=== PATIENT | female | born 1945 | race Caucasian/White ===

== ENCOUNTER 2018-01-15 17:37 | Inpatient (IN) | payer MEDICARE, BC ==
[~2018-01-15] VITALS: Ht 177.8 cm; Wt 80.0 kg
[2018-01-15 18:50] LABS: BASOPHILS % (AUTO) 0.1 % (0-1); EOSINOPHILS # (AUTO) 0.2 X10'3 (0-0.9); EOSINOPHILS % (AUTO) 1.5 % (0-6); HEMOGLOBIN 13.3 g/dl (12.0-16.0); LYMPHOCYTES # (AUTO) 2.4 X10'3 (1.1-4.8); LYMPHOCYTES % (AUTO) 17.9 % (21-51); MEAN CORPUSCULAR HEMOGLOBIN 29.3 PG (27.0-31.0); MEAN CORPUSCULAR HGB CONC 33.2 % (33.0-36.5); MEAN CORPUSCULAR VOLUME 88.4 FL (78-98); MEAN PLATELET VOLUME 8.4 FL (7.4-10.4); MONOCYTES % (AUTO) 7.9 % (2-12); NEUTROPHILS # (AUTO) 9.6 X10'3 (1.8-7.7); NEUTROPHILS % (AUTO) 72.6 % (42-75); PLATELET COUNT 304 X10'3 (140-440); RED BLOOD COUNT 4.52 X10'6 (4.20-5.60); RED CELL DISTRIBUTION WIDTH 14.8 % (11.5-14.5); WHITE BLOOD COUNT 13.3 X10'3 (4.5-11.0)
[2018-01-15 19:03] LABS: PARTIAL THROMBOPLASTIN TIME 28 SECONDS (22-32); PROTHROMBIN TIME 10.4 SECONDS (9.0-12.0)
[2018-01-15 19:13] LABS: CLARITY,URINE CLOUDY (Clear); COLOR,URINE YELLOW (Yellow); GLUCOSE, URINE NEGATIVE (Neg); KETONES,URINE 15 mg/dl (Neg); LEUKOCYTE ESTERASE ,URINE LARGE (Neg); NITRITES, URINE POSITIVE (Neg); OCCULT BLOOD,URINE TRACE-INTACT (Neg); PROTEIN,URINE 30 mg/dl (Neg)
[2018-01-15 19:17] LABS: ALBUMIN 3.5 G/DL (3.4-5.0); ALBUMIN/GLOBULIN RATIO 0.8 (1.1-1.5); ALKALINE PHOSPHATASE 110 IU/L (46-116); ANION GAP 10 (8-16); ASPARTATE AMINO TRANSFERASE 21 U/L (10-37); BILIRUBIN,TOTAL 0.5 MG/DL (0.1-1.0); BLOOD UREA NITROGEN 15 MG/DL (7-18); BUN/CREATININE RATIO 16.9 (6.6-38.0); CALCIUM 9.7 MG/DL (8.5-10.1); CHLORIDE 101 MMOL/L (99-107); CREATININE 0.89 MG/DL (0.40-0.90); GLUCOSE 130 MG/DL (70-104); POTASSIUM 4.6 MMOL/L (3.5-5.1); SODIUM 142 MMOL/L (135-145); TOTAL CARBON DIOXIDE 31.1 MMOL/L (24-32); TOTAL PROTEIN 7.9 G/DL (6.4-8.2); TROPONIN I < 0.04 NG/ML (0.0-0.05); eGFR 62 ML/MIN
[2018-01-15 19:22] LABS: UA COLLECTION TYPE CLN CATCH MIDSTREAM
[2018-01-15 19:23] LABS: RBC,URINE 0-2 /HPF (0-2); SQUAMOUS EPITHELIAL CELL,UR FEW /LPF (FEW); WBC,URINE 50-100 /HPF (0-4)
[2018-01-15 19:24] LABS: BACTERIA,URINE 3+ /HPF (Neg)
[2018-01-15 19:28] LABS: ALANINE AMINOTRANSFERASE 29 U/L (12-78)
[2018-01-15] MEDS ORDERED: CefTRIAXone inj 1,000 MG in normal saline 50ml IV soln 50 ML IV ONE (20:55)
[2018-01-15] MEDS ORDERED: cefTRIAXone 1g/NS 100ml IVPB 100 ML IV ONE (21:00)
[2018-01-15] MEDS ORDERED: MOME17SP BOTHNARES (21:11)
[2018-01-15] MEDS ORDERED: AZEL30SP3 BOTHNARES (21:11)
[2018-01-15] MEDS ORDERED: LORA10TA61 PO (21:11)
[2018-01-15] MEDS ORDERED: OXYB10TA4 PO (21:11)
[2018-01-15] MEDS ORDERED: DULO60CA45 PO (21:11)
[2018-01-15] MEDS ORDERED: LEVO100T9 PO (21:11)
[2018-01-15] MEDS ORDERED: METF500T4 PO (21:11)
[2018-01-15] MEDS ORDERED: CARV25TA PO (21:11)
[2018-01-15] MEDS ORDERED: ALLO300T2 PO (21:11)
[2018-01-15] MEDS ORDERED: ipratropium/albuterol 3ml nebule NEB ONE (21:15)
[2018-01-15] MEDS ORDERED: BUPIVAcaine/PF 2.5 mg/ml (0.25%) 30ml vial IJ ONE (21:15)
[2018-01-15] MEDS ORDERED: CLOT15CR73 TP (21:19)
[2018-01-15] MEDS ORDERED: GABA100C PO (21:19)
[2018-01-15] MEDS ORDERED: ACET-3067 PO (21:19)
[2018-01-15] MEDS ORDERED: PSEU-259 PO (21:19)
[2018-01-15] MEDS ORDERED: magnesium hydroxide 30ml (MOM) UD suspension PO PRN (21:50)
[2018-01-15] MEDS ORDERED: acetaminophen 325mg tablet PO PRN (21:50)
[2018-01-15] MEDS ORDERED: acetaminophen w/codeine (60MG) #4 tablet PO PRN (21:55)
[2018-01-15] MEDS: normal saline 1000ml 1,000 ML IV SCH (22:02)
[2018-01-16 07:09] LABS: BASOPHILS # (AUTO) 0.1 X10'3 (0-0.2); BASOPHILS % (AUTO) 0.7 % (0-1); EOSINOPHILS % (AUTO) 0.2 % (0-6); HEMATOCRIT 35.9 % (35.0-45.0); HEMOGLOBIN 11.9 g/dl (12.0-16.0); LYMPHOCYTES # (AUTO) 2.8 X10'3 (1.1-4.8); LYMPHOCYTES % (AUTO) 22.3 % (21-51); MEAN CORPUSCULAR HEMOGLOBIN 29.4 PG (27.0-31.0); MEAN CORPUSCULAR HGB CONC 33.2 % (33.0-36.5); MEAN CORPUSCULAR VOLUME 88.5 FL (78-98); MEAN PLATELET VOLUME 8.5 FL (7.4-10.4); MONOCYTES # (AUTO) 1.1 X10'3 (0-0.9); MONOCYTES % (AUTO) 8.6 % (2-12); NEUTROPHILS # (AUTO) 8.7 X10'3 (1.8-7.7); NEUTROPHILS % (AUTO) 68.2 % (42-75); PLATELET COUNT 274 X10'3 (140-440); RED BLOOD COUNT 4.06 X10'6 (4.20-5.60); RED CELL DISTRIBUTION WIDTH 15.4 % (11.5-14.5); WHITE BLOOD COUNT 12.8 X10'3 (4.5-11.0)
[2018-01-16 07:30] LABS: ALANINE AMINOTRANSFERASE 27 U/L (12-78); ALBUMIN 2.8 G/DL (3.4-5.0); ALBUMIN/GLOBULIN RATIO 0.7 (1.1-1.5); ALKALINE PHOSPHATASE 91 IU/L (46-116); ANION GAP 9 (8-16); ASPARTATE AMINO TRANSFERASE 17 U/L (10-37); BILIRUBIN,TOTAL 0.4 MG/DL (0.1-1.0); BLOOD UREA NITROGEN 14 MG/DL (7-18); BUN/CREATININE RATIO 18.9 (6.6-38.0); CALCIUM 8.9 MG/DL (8.5-10.1); CHLORIDE 102 MMOL/L (99-107); CREATININE 0.74 MG/DL (0.40-0.90); GLUCOSE 108 MG/DL (70-104); POTASSIUM 4.4 MMOL/L (3.5-5.1); SODIUM 142 MMOL/L (135-145); TOTAL CARBON DIOXIDE 31.2 MMOL/L (24-32); TOTAL PROTEIN 6.7 G/DL (6.4-8.2); eGFR 77 ML/MIN
[2018-01-16 08:00] VITALS: BP 120/51
[2018-01-16] MEDS ORDERED: DULOXETINE HCL PO SCH (08:00)
[2018-01-16] MEDS ORDERED: cefTRIAXone 1g/NS 100ml IVPB 100 ML IV SCH (08:00)
[2018-01-16] MEDS: pseudoephedrine 30mg tablet PO SCH ×4 (08:00→21:00)
[2018-01-16] MEDS ORDERED: AZELASTINE HCL BOTHNARES SCH (08:00)
[2018-01-16] MEDS ORDERED: MOMETASONE FUROATE BOTHNARES SCH (08:00)
[2018-01-16] MEDS ORDERED: LORATADINE PO SCH (08:00)
[2018-01-16] MEDS ORDERED: non-formulary drug (Carvedilol (Coreg) 1 TAB) PO SCH (08:00)
[2018-01-16] MEDS: gabapentin 100mg capsule PO SCH ×2 (08:42→21:20)
[2018-01-16] MEDS: metFORMIN 500mg tablet PO SCH ×2 (08:42→21:19)
[2018-01-16] MEDS: levoTHYROXINE 100mcg tablet PO SCH (08:43)
[2018-01-16] MEDS: loratadine 10mg tablet PO SCH (08:43)
[2018-01-16] MEDS: carVEDilol 12.5mg tablet PO SCH ×2 (08:43→21:19)
[2018-01-16] MEDS: duloxetine 30mg CAPSULE.DR PO SCH (08:44)
[2018-01-16] MEDS: heparin, porcine 5000 units/ml vial SQ SCH ×2 (08:46→21:18)
[2018-01-16] MEDS: fluticasone nasal spray 16GM bottle NS SCH (08:56)
[2018-01-16] MEDS: azelastine Nasal Spray bottle NS SCH ×2 (08:56→21:17)
[2018-01-16 11:32] VITALS: BP 108/39
[2018-01-16] MEDS ORDERED: levoFLOXACIN-Levaquin 500mg/D5 100 ML IV ONE (14:45)
[2018-01-16] MEDS: normal saline 1000ml 1,000 ML IV SCH (14:46)
[2018-01-16] MEDS: ondansetron/PF 4mg/2ml inj IV PRN (15:05)
[2018-01-16] MEDS ORDERED: morphine 4 MG/ML inj SYRINge IV ONE (16:15)
[2018-01-16 18:00] VITALS: BP 96/33
[2018-01-16] MEDS: acetaminophen w/codeine (30MG) #3 tablet PO PRN (21:19)
[2018-01-16] MEDS: lactobacillus rhamnosus 10,000 MMU CELLS/CAPSULE PO SCH (21:19)
[2018-01-16] MEDS: allopurinol 300 MG tablet PO SCH (21:20)
[2018-01-16 21:30] VITALS: BP 110/42
[2018-01-16] MEDS ORDERED: vancomycin/NS 1 GM ADD-VANTAGE 250 ML IV ONE (22:05)
[2018-01-17 05:39] LABS: BASOPHILS % (AUTO) 0.4 % (0-1); EOSINOPHILS # (AUTO) 0.2 X10'3 (0-0.9); EOSINOPHILS % (AUTO) 2.3 % (0-6); HEMATOCRIT 32.9 % (35.0-45.0); HEMOGLOBIN 10.8 g/dl (12.0-16.0); LYMPHOCYTES # (AUTO) 1.9 X10'3 (1.1-4.8); LYMPHOCYTES % (AUTO) 23.1 % (21-51); MEAN CORPUSCULAR HGB CONC 32.8 % (33.0-36.5); MEAN CORPUSCULAR VOLUME 88.6 FL (78-98); MEAN PLATELET VOLUME 9.1 FL (7.4-10.4); MONOCYTES # (AUTO) 0.7 X10'3 (0-0.9); MONOCYTES % (AUTO) 8.7 % (2-12); NEUTROPHILS # (AUTO) 5.4 X10'3 (1.8-7.7); NEUTROPHILS % (AUTO) 65.5 % (42-75); PLATELET COUNT 249 X10'3 (140-440); RED BLOOD COUNT 3.71 X10'6 (4.20-5.60); RED CELL DISTRIBUTION WIDTH 15.3 % (11.5-14.5); WHITE BLOOD COUNT 8.3 X10'3 (4.5-11.0)
[2018-01-17 05:47] LABS: ALANINE AMINOTRANSFERASE 21 U/L (12-78); ALBUMIN 2.6 G/DL (3.4-5.0); ALBUMIN/GLOBULIN RATIO 0.7 (1.1-1.5); ALKALINE PHOSPHATASE 82 IU/L (46-116); ANION GAP 8 (8-16); ASPARTATE AMINO TRANSFERASE 16 U/L (10-37); BILIRUBIN,TOTAL 0.3 MG/DL (0.1-1.0); BLOOD UREA NITROGEN 10 MG/DL (7-18); BUN/CREATININE RATIO 15.2 (6.6-38.0); CALCIUM 8.8 MG/DL (8.5-10.1); CHLORIDE 106 MMOL/L (99-107); CREATININE 0.66 MG/DL (0.40-0.90); GLUCOSE 97 MG/DL (70-104); POTASSIUM 4.3 MMOL/L (3.5-5.1); SODIUM 145 MMOL/L (135-145); TOTAL CARBON DIOXIDE 31.5 MMOL/L (24-32); TOTAL PROTEIN 6.4 G/DL (6.4-8.2); eGFR 88 ML/MIN
[2018-01-17] MEDS: acetaminophen w/codeine (30MG) #3 tablet PO PRN ×4 (05:53→20:36)
[2018-01-17 06:00] VITALS: BP 109/51
[2018-01-17 06:14] LABS: HEMOGLOBIN A1C 6.7 % (4.5-6.2)
[2018-01-17 07:31] VITALS: BP 114/40
[2018-01-17] MEDS: metFORMIN 500mg tablet PO SCH ×2 (07:57→20:35)
[2018-01-17] MEDS: carVEDilol 12.5mg tablet PO SCH ×2 (07:58→20:35)
[2018-01-17] MEDS: levoTHYROXINE 100mcg tablet PO SCH (07:59)
[2018-01-17] MEDS: gabapentin 100mg capsule PO SCH ×2 (07:59→20:35)
[2018-01-17] MEDS: loratadine 10mg tablet PO SCH (07:59)
[2018-01-17] MEDS: lactobacillus rhamnosus 10,000 MMU CELLS/CAPSULE PO SCH ×2 (07:59→20:35)
[2018-01-17] MEDS: duloxetine 30mg CAPSULE.DR PO SCH (08:00)
[2018-01-17] MEDS: heparin, porcine 5000 units/ml vial SQ SCH ×2 (08:01→20:35)
[2018-01-17] MEDS: azelastine Nasal Spray bottle NS SCH ×2 (08:02→20:36)
[2018-01-17] MEDS: fluticasone nasal spray 16GM bottle NS SCH (08:03)
[2018-01-17] MEDS: levoFLOXACIN-Levaquin 500mg/D5 100 ML IV SCH (08:04)
[2018-01-17] MEDS: normal saline 1000ml 1,000 ML IV SCH ×2 (08:06→20:44)
[2018-01-17] MEDS ORDERED: pseudoephedrine 30mg tablet PO PRN (09:10)
[2018-01-17] MEDS: ondansetron/PF 4mg/2ml inj IV PRN ×2 (09:18→15:00)
[2018-01-17] MEDS: pantoprazole 40mg Tablet.DR PO SCH (09:18)
[2018-01-17] MEDS ORDERED: FLU VACC QS2017-18 36MOS UP/PF 60 MCG/0.5 ML SYRINGE IMVAC ONE (10:00)
[2018-01-17] MEDS ORDERED: pneumococcal 23-VAL P-sac vacc 25 mcg/0.5ml vial IMVAC ONE (10:00)
[2018-01-17 10:22] VITALS: BP 97/36
[2018-01-17 18:42] VITALS: BP 128/46
[2018-01-17] MEDS: allopurinol 300 MG tablet PO SCH (20:35)
[2018-01-18] MEDS: acetaminophen w/codeine (30MG) #3 tablet PO PRN ×4 (04:04→20:19)
[2018-01-18 06:00] VITALS: BP 139/47
[2018-01-18 06:28] LABS: BASOPHILS % (AUTO) 0.4 % (0-1); EOSINOPHILS # (AUTO) 0.2 X10'3 (0-0.9); HEMATOCRIT 34.9 % (35.0-45.0); HEMOGLOBIN 11.3 g/dl (12.0-16.0); LYMPHOCYTES # (AUTO) 2.2 X10'3 (1.1-4.8); LYMPHOCYTES % (AUTO) 29.9 % (21-51); MEAN CORPUSCULAR HGB CONC 32.4 % (33.0-36.5); MEAN CORPUSCULAR VOLUME 89.5 FL (78-98); MEAN PLATELET VOLUME 8.7 FL (7.4-10.4); MONOCYTES # (AUTO) 0.6 X10'3 (0-0.9); MONOCYTES % (AUTO) 8.4 % (2-12); NEUTROPHILS # (AUTO) 4.2 X10'3 (1.8-7.7); NEUTROPHILS % (AUTO) 58.3 % (42-75); PLATELET COUNT 275 X10'3 (140-440); RED CELL DISTRIBUTION WIDTH 15.4 % (11.5-14.5); WHITE BLOOD COUNT 7.3 X10'3 (4.5-11.0)
[2018-01-18 06:39] VITALS: BP 179/20
[2018-01-18 06:47] LABS: ALANINE AMINOTRANSFERASE 23 U/L (12-78); ALBUMIN 2.8 G/DL (3.4-5.0); ALBUMIN/GLOBULIN RATIO 0.7 (1.1-1.5); ALKALINE PHOSPHATASE 78 IU/L (46-116); ANION GAP 8 (8-16); ASPARTATE AMINO TRANSFERASE 13 U/L (10-37); BILIRUBIN,TOTAL 0.3 MG/DL (0.1-1.0); BLOOD UREA NITROGEN 7 MG/DL (7-18); BUN/CREATININE RATIO 10.4 (6.6-38.0); CHLORIDE 108 MMOL/L (99-107); CREATININE 0.67 MG/DL (0.40-0.90); GLUCOSE 105 MG/DL (70-104); POTASSIUM 4.3 MMOL/L (3.5-5.1); SODIUM 146 MMOL/L (135-145); TOTAL PROTEIN 6.6 G/DL (6.4-8.2); eGFR 86 ML/MIN
[2018-01-18] MEDS: heparin, porcine 5000 units/ml vial SQ SCH ×2 (07:16→20:20)
[2018-01-18] MEDS: carVEDilol 12.5mg tablet PO SCH ×2 (07:17→20:19)
[2018-01-18] MEDS: levoTHYROXINE 100mcg tablet PO SCH (07:17)
[2018-01-18] MEDS: lactobacillus rhamnosus 10,000 MMU CELLS/CAPSULE PO SCH ×2 (07:18→20:20)
[2018-01-18] MEDS: metFORMIN 500mg tablet PO SCH ×2 (07:18→20:19)
[2018-01-18] MEDS: duloxetine 30mg CAPSULE.DR PO SCH (07:18)
[2018-01-18] MEDS: pantoprazole 40mg Tablet.DR PO SCH (07:18)
[2018-01-18] MEDS: loratadine 10mg tablet PO SCH (07:19)
[2018-01-18] MEDS: gabapentin 100mg capsule PO SCH ×2 (07:19→20:20)
[2018-01-18] MEDS: azelastine Nasal Spray bottle NS SCH ×2 (07:21→20:27)
[2018-01-18] MEDS: fluticasone nasal spray 16GM bottle NS SCH (07:21)
[2018-01-18] MEDS: levoFLOXACIN-Levaquin 500mg/D5 100 ML IV SCH (07:22)
[2018-01-18] MEDS: ondansetron/PF 4mg/2ml inj IV PRN ×2 (07:26→13:37)
[2018-01-18 10:00] VITALS: BP 116/41
[2018-01-18 10:54] VITALS: BP 128/45
[2018-01-18] MEDS: vancomycin/NS 1 GM ADD-VANTAGE 250 ML IV SCH (13:08)
[2018-01-18] MEDS: mag hydrox/Alum hydrox/simeth 30ml oral suspension PO PRN (13:51)
[2018-01-18] MEDS: normal saline 1000ml 1,000 ML IV SCH (16:28)
[2018-01-18 18:00] VITALS: BP 147/46
[2018-01-18] MEDS: allopurinol 300 MG tablet PO SCH (20:27)
[2018-01-18] MEDS ORDERED: vancomycin inj 1,250 MG in normal saline 250ml IV soln 250 ML IV SCH (20:30)
[2018-01-18 22:00] VITALS: BP 126/51
[2018-01-19] MEDS: vancomycin/NS 1 GM ADD-VANTAGE 250 ML IV SCH ×2 (01:17→13:30)
[2018-01-19 06:00] VITALS: BP 133/57
[2018-01-19 06:48] LABS: BASOPHILS % (AUTO) 0.4 % (0-1); EOSINOPHILS # (AUTO) 0.2 X10'3 (0-0.9); EOSINOPHILS % (AUTO) 3.7 % (0-6); HEMATOCRIT 32.8 % (35.0-45.0); HEMOGLOBIN 10.7 g/dl (12.0-16.0); LYMPHOCYTES # (AUTO) 2.2 X10'3 (1.1-4.8); LYMPHOCYTES % (AUTO) 33.9 % (21-51); MEAN CORPUSCULAR HEMOGLOBIN 28.8 PG (27.0-31.0); MEAN CORPUSCULAR HGB CONC 32.6 % (33.0-36.5); MEAN CORPUSCULAR VOLUME 88.3 FL (78-98); MEAN PLATELET VOLUME 8.4 FL (7.4-10.4); MONOCYTES # (AUTO) 0.6 X10'3 (0-0.9); NEUTROPHILS # (AUTO) 3.4 X10'3 (1.8-7.7); PLATELET COUNT 259 X10'3 (140-440); RED BLOOD COUNT 3.71 X10'6 (4.20-5.60); WHITE BLOOD COUNT 6.5 X10'3 (4.5-11.0)
[2018-01-19 07:20] LABS: ALANINE AMINOTRANSFERASE 25 U/L (12-78); ALBUMIN 2.6 G/DL (3.4-5.0); ALBUMIN/GLOBULIN RATIO 0.8 (1.1-1.5); ALKALINE PHOSPHATASE 64 IU/L (46-116); ANION GAP 9 (8-16); ASPARTATE AMINO TRANSFERASE 17 U/L (10-37); BILIRUBIN,TOTAL 0.2 MG/DL (0.1-1.0); BLOOD UREA NITROGEN 5 MG/DL (7-18); BUN/CREATININE RATIO 7.1 (6.6-38.0); CALCIUM 8.7 MG/DL (8.5-10.1); CHLORIDE 110 MMOL/L (99-107); GLUCOSE 98 MG/DL (70-104); POTASSIUM 3.8 MMOL/L (3.5-5.1); SODIUM 149 MMOL/L (135-145); TOTAL CARBON DIOXIDE 29.7 MMOL/L (24-32); eGFR 82 ML/MIN
[2018-01-19] MEDS: gabapentin 100mg capsule PO SCH (07:24)
[2018-01-19] MEDS: pantoprazole 40mg Tablet.DR PO SCH (07:24)
[2018-01-19] MEDS: metFORMIN 500mg tablet PO SCH (07:24)
[2018-01-19] MEDS: lactobacillus rhamnosus 10,000 MMU CELLS/CAPSULE PO SCH (07:24)
[2018-01-19] MEDS: acetaminophen w/codeine (30MG) #3 tablet PO PRN ×2 (07:25→13:51)
[2018-01-19] MEDS: ondansetron/PF 4mg/2ml inj IV PRN (07:25)
[2018-01-19] MEDS: duloxetine 30mg CAPSULE.DR PO SCH (07:25)
[2018-01-19] MEDS: levoTHYROXINE 100mcg tablet PO SCH (07:25)
[2018-01-19] MEDS: heparin, porcine 5000 units/ml vial SQ SCH (07:25)
[2018-01-19] MEDS: carVEDilol 12.5mg tablet PO SCH (07:25)
[2018-01-19] MEDS: loratadine 10mg tablet PO SCH (07:25)
[2018-01-19] MEDS: azelastine Nasal Spray bottle NS SCH (07:26)
[2018-01-19] MEDS: fluticasone nasal spray 16GM bottle NS SCH (07:26)
[2018-01-19] MEDS: mag hydrox/Alum hydrox/simeth 30ml oral suspension PO PRN (07:34)
[2018-01-19 10:00] VITALS: BP 107/48
[2018-01-19] MEDS: normal saline 1000ml 1,000 ML IV SCH (10:06)
[2018-01-19] MEDS ORDERED: levoFLOXACIN 500mg tablet PO SCH (11:00)
[2018-01-20] MEDS ORDERED: VANCOMYCIN LEVEL IV NR (00:30)
== END 2018-01-19 16:00 | disposition home or self-care (01) | DRG 871 ==
LOC: ER 17:38 → ED HOLD 21:49 → ORTHO 4S 01-16 08:10
PROVIDERS: ADMIT Internal Medicine; ATTEND Family Medicine
DX: A41.9 Sepsis, unspecified organism (principal); J18.9 Pneumonia, unspecified organism; G93.40 Encephalopathy, unspecified; N39.0 Urinary tract infection, site not specified; E11.9 Type 2 diabetes mellitus without complications; M54.9 Dorsalgia, unspecified; M10.9 Gout, unspecified; I10 Essential (primary) hypertension; E03.9 Hypothyroidism, unspecified; G89.29 Other chronic pain; M79.7 Fibromyalgia; Z88.8 Allergy status to other drugs, medicaments and biological substances; Z79.84 Long term (current) use of oral hypoglycemic drugs; Z79.899 Other long term (current) drug therapy; Z23 Encounter for immunization; Z28.21 Immunization not carried out because of patient refusal
CPT/HCPCS: 36415; 70450; 71045; 71250; 74176; 80053; 81001; 82948; 83036; 83605; 84484; 85025; 85610; 85730; 87040; 87070; 87077; 87088; 87186; 93005; 96365; 97161; 97530; 99285; A6212; A6213; J0696; J1644; J1956; J2270; J2405; J3370; J3490; J7030; J7040

== ENCOUNTER 2021-03-20 17:01 | Emergency (ER) | payer BC, MEDICARE ==
[~2021-03-20] VITALS: Ht 175.3 cm; Wt 77.3 kg
[~2021-03-20 17:01] MED LIST: ACET-3067 PO; ALLO300T2 PO; AZEL30SP3 BOTHNARES; CARV25TA PO; DOCU100C40 PO; DULO60CA45 PO; GABA100C PO; LEVO100T9 PO; LORA10TA61 PO; METF-436 PO; MOME17SP BOTHNARES; OXYB10TA4 PO
[2021-03-20] MEDS ORDERED: acetaminophen 325mg tablet PO STA (17:15)
[2021-03-20] MEDS ORDERED: normal saline 1000ML IV soln IV ONE (17:15)
[2021-03-20] MEDS ORDERED: CefTRIAXone 2gm/D5W 50ml BAG 50 ML IV ONE (17:30)
[2021-03-20 17:52] LABS: BASOPHILS % (AUTO) 0.4 % (0-1); EOSINOPHILS % (AUTO) 0.3 % (0-6); HEMATOCRIT 34.9 % (35.0-45.0); HEMOGLOBIN 11.4 g/dl (12.0-16.0); LYMPHOCYTES # (AUTO) 1.3 X10'3 (1.1-4.8); LYMPHOCYTES % (AUTO) 19.9 % (21-51); MEAN CORPUSCULAR HEMOGLOBIN 29.8 PG (27.0-31.0); MEAN CORPUSCULAR HGB CONC 32.6 g/dL (33.0-36.5); MEAN CORPUSCULAR VOLUME 91.2 FL (78-98); MEAN PLATELET VOLUME 8.1 FL (7.4-10.4); MONOCYTES # (AUTO) 0.6 X10'3 (0-0.9); NEUTROPHILS # (AUTO) 4.5 X10'3 (1.8-7.7); NEUTROPHILS % (AUTO) 70.4 % (42-75); PLATELET COUNT 268 X10'3 (140-440); RED BLOOD COUNT 3.83 X10'6 (4.20-5.60); RED CELL DISTRIBUTION WIDTH 15.5 % (11.5-14.5); WHITE BLOOD COUNT 6.4 X10'3 (4.5-11.0)
[2021-03-20 18:08] LABS: ALANINE AMINOTRANSFERASE 33 U/L (12-78); ALBUMIN 3.5 G/DL (3.4-5.0); ALBUMIN/GLOBULIN RATIO 0.9 (1.1-1.5); ALKALINE PHOSPHATASE 81 IU/L (46-116); ANION GAP 10 (8-16); ASPARTATE AMINO TRANSFERASE 32 U/L (10-37); BILIRUBIN,TOTAL 0.3 MG/DL (0.1-1.0); BLOOD UREA NITROGEN 40 MG/DL (7-18); BUN/CREATININE RATIO 25.2 (6.6-38.0); CALCIUM 8.6 MG/DL (8.5-10.1); CHLORIDE 98 MMOL/L (99-107); CREATININE 1.59 MG/DL (0.40-0.90); GLUCOSE 125 MG/DL (70-104); POTASSIUM 4.6 MMOL/L (3.5-5.1); SODIUM 137 MMOL/L (135-145); TOTAL CARBON DIOXIDE 28.6 MMOL/L (24-32); TOTAL PROTEIN 7.2 G/DL (6.4-8.2); eGFR 32 ML/MIN
[2021-03-20 18:22] LABS: C-REACTIVE PROTEIN 3.21 MG/DL (0.0-0.5); ETHANOL < 0.010 GM/DL (0.0-0.010); FERRITIN 613 NG/ML (8-252); LACTATE DEHYDROGENASE 206 U/L (81-234); MAGNESIUM 2.4 MG/DL (1.5-2.4)
[2021-03-20 18:45] LABS: CLARITY,URINE CLEAR (Clear); COLOR,URINE YELLOW (Yellow); GLUCOSE, URINE NEGATIVE (Neg); KETONES,URINE NEGATIVE (Neg); LEUKOCYTE ESTERASE ,URINE TRACE (Neg); NITRITES, URINE NEGATIVE (Neg); OCCULT BLOOD,URINE NEGATIVE (Neg); PH,URINE 5.5 (4.8-8.0); PROTEIN,URINE TRACE mg/dl (Neg); UROBILINOGEN,URINE 0.2 E.U/dL (0.2-1.0)
[2021-03-20 18:51] LABS: UA COLLECTION TYPE STRAIGHT CATH
[2021-03-20 18:52] LABS: BACTERIA,URINE FEW /HPF (Neg); RBC,URINE NONE SEEN /HPF (0-2); SQUAMOUS EPITHELIAL CELL,UR FEW /LPF (FEW); WBC,URINE 0-4 /HPF (0-4)
[2021-03-20 19:09] LABS: URINE AMPHETAMINE SCREEN NEGATIVE (Neg); URINE BARBITUATE SCREEN NEGATIVE (Neg); URINE BENZODIAZEPINES SCREEN NEGATIVE (Neg); URINE CANNABINOID SCREEN NEGATIVE (Neg); URINE COCAINE SCREEN NEGATIVE (Neg); URINE METHADONE SCREEN NEGATIVE (Neg); URINE OPIATE SCREEN NEGATIVE (Neg); URINE PHENCYCLIDINE SCREEN NEGATIVE (Neg)
--- NOTE | 2021-03-20 19:40 | NUR ---
covid test positive. Reported to Dr. Rosa
[2021-03-20] MEDS ORDERED: CEPH-585 PO (19:50)
[2021-03-20 20:07] VITALS: BP 142/78
== END 2021-03-20 20:09 | disposition home or self-care (01) ==
LOC: ER 17:01
DX: U07.1 COVID-19 (principal); N39.0 Urinary tract infection, site not specified; E11.9 Type 2 diabetes mellitus without complications; M79.7 Fibromyalgia; R41.82 Altered mental status, unspecified; Z88.8 Allergy status to other drugs, medicaments and biological substances; Z91.011 Allergy to milk products; Z79.899 Other long term (current) drug therapy
CPT/HCPCS: 36415; 70450; 71045; 80053; 80305; 80320; 81001; 82728; 83605; 83615; 83735; 84145; 85025; 85384; 86140; 87040; 87088; 87635; 93005; 96365; 99285; C9803; J0696; J7030

== ENCOUNTER 2021-03-26 23:58 | Emergency (ER) | payer MEDICARE ==
[~2021-03-26] VITALS: Ht 175.3 cm; Wt 75.0 kg
[~2021-03-26 23:58] MED LIST changes: +CEPH-585 PO
--- NOTE | 2021-03-27 00:29 | NUR ---
bedside - daughter Deirdre updating MD on patient's symptoms. Deirdre reports patient has been confused for a week and normally is A&O x4; states this improved with IVF last visit.
[2021-03-27] MEDS ORDERED: ondansetron/PF 4mg/2ml inj IV ONE ×2 (00:35→00:50)
[2021-03-27] MEDS ORDERED: morphine 4 MG/ML inj SYRINge IV PRN (00:35)
[2021-03-27 00:46] LABS: BASOPHILS % (AUTO) 0.2 % (0-1); EOSINOPHILS % (AUTO) 0.4 % (0-6); HEMATOCRIT 35.3 % (35.0-45.0); HEMOGLOBIN 11.7 g/dl (12.0-16.0); LYMPHOCYTES # (AUTO) 1.8 X10'3 (1.1-4.8); LYMPHOCYTES % (AUTO) 23.9 % (21-51); MEAN CORPUSCULAR HEMOGLOBIN 30.1 PG (27.0-31.0); MEAN CORPUSCULAR VOLUME 91.2 FL (78-98); MEAN PLATELET VOLUME 8.3 FL (7.4-10.4); MONOCYTES # (AUTO) 0.5 X10'3 (0-0.9); MONOCYTES % (AUTO) 6.9 % (2-12); NEUTROPHILS # (AUTO) 5.2 X10'3 (1.8-7.7); NEUTROPHILS % (AUTO) 68.6 % (42-75); PLATELET COUNT 357 X10'3 (140-440); RED BLOOD COUNT 3.87 X10'6 (4.20-5.60); RED CELL DISTRIBUTION WIDTH 15.5 % (11.5-14.5); WHITE BLOOD COUNT 7.5 X10'3 (4.5-11.0)
[2021-03-27 00:50] LABS: ALBUMIN 2.9 G/DL (3.4-5.0); ANION GAP 12 (8-16); BILIRUBIN,TOTAL 0.3 MG/DL (0.1-1.0); BLOOD UREA NITROGEN 25 MG/DL (7-18); BUN/CREATININE RATIO 21.2 (6.6-38.0); CALCIUM 8.9 MG/DL (8.5-10.1); CHLORIDE 101 MMOL/L (99-107); CREATININE 1.18 MG/DL (0.40-0.90); GLUCOSE 112 MG/DL (70-104); POTASSIUM 4.9 MMOL/L (3.5-5.1); SODIUM 136 MMOL/L (135-145); TOTAL CARBON DIOXIDE 23.3 MMOL/L (24-32); TOTAL PROTEIN 7.2 G/DL (6.4-8.2); eGFR 45 ML/MIN
[2021-03-27 00:51] LABS: ALANINE AMINOTRANSFERASE 77 U/L (12-78); ALBUMIN/GLOBULIN RATIO 0.7 (1.1-1.5); ALKALINE PHOSPHATASE 89 IU/L (46-116); ASPARTATE AMINO TRANSFERASE 62 U/L (10-37); LIPASE 55 U/L (73-393)
[2021-03-27 01:18] LABS: CLARITY,URINE CLEAR (Clear); COLOR,URINE YELLOW (Yellow); GLUCOSE, URINE NEGATIVE (Neg); KETONES,URINE NEGATIVE (Neg); LEUKOCYTE ESTERASE ,URINE NEGATIVE (Neg); NITRITES, URINE NEGATIVE (Neg); OCCULT BLOOD,URINE TRACE-INTACT (Neg); PROTEIN,URINE NEGATIVE (Neg); UROBILINOGEN,URINE 0.2 E.U/dL (0.2-1.0)
[2021-03-27 01:19] LABS: UA COLLECTION TYPE STRAIGHT CATH
[2021-03-27 01:32] LABS: BACTERIA,URINE NONE SEEN /HPF (Neg); MUCUS STRANDS NONE SEEN /LPF (Neg); SQUAMOUS EPITHELIAL CELL,UR FEW /LPF (FEW); WBC,URINE 0-4 /HPF (0-4)
[2021-03-27] MEDS ORDERED: normal saline 1000ML IV soln IVB ONE (02:00)
[2021-03-27 02:35] VITALS: BP 125/44
== END 2021-03-27 03:24 | disposition home or self-care (01) ==
LOC: ER 23:59
DX: U07.1 COVID-19 (principal); N28.9 Disorder of kidney and ureter, unspecified; J12.82 Pneumonia due to coronavirus disease 2019; R10.84 Generalized abdominal pain; E11.9 Type 2 diabetes mellitus without complications; Z88.8 Allergy status to other drugs, medicaments and biological substances; Z91.011 Allergy to milk products; Z79.2 Long term (current) use of antibiotics; Z79.899 Other long term (current) drug therapy
CPT/HCPCS: 36415; 74176; 80053; 81001; 83605; 83690; 84484; 85025; 96361; 96374; 96375; 99284; J2270; J2405; J7030